=== PATIENT | female | born 1995 | race Caucasian/White ===

== ENCOUNTER 2017-04-17 22:15 | Emergency (ER) | payer OTHER ==
[~2017-04-17] VITALS: Ht 160 cm; Wt 52.2 kg
[2017-04-17] MEDS ORDERED: BC PILL (22:58)
[2017-04-17 23:14] LABS: *BILIRUBIN,URIN NEGATIVE (NEGATIVE); *BLOOD, URINE 2+ (NEGATIVE); *CLARITY,URINE CLEAR (CLEAR); *COLOR,URINE YELLOW (YELLOW); *KETONES,URINE 1+ (NEGATIVE); *PROTEIN,URINE NEGATIVE (NEGATIVE); *UROBILINOGEN,URINE 0.2 E.U./dl (NORMAL); LEUKOCYTE ESTERASE ,URINE TRACE (NEGATIVE); NITRITE, URINE NEGATIVE (NEGATIVE); PH,URINE 6.5 (5.0-8.0); UGLUCOSE NEGATIVE (NEGATIVE)
[2017-04-17 23:34] LABS: BACTERIA,URINE FEW /HPF (NONE SEEN); SQUAMOUS EPITHELIAL CELL,UR MODERATE /HPF (NONE SEEN); WBC,URINE 0-3 /HPF (0-3)
[2017-04-17 23:36] LABS: *URINE HCG, QUAL NEGATIVE (NEGATIVE)
--- NOTE | 2017-04-17 23:47 | NUR ---
Dr. Pina at bedside for eval.
--- NOTE | 2017-04-17 23:59 | NUR ---
Patient discharged to home in stable conditon. Written and verbal after care instructions given. Patient verbalizes understanding of instructions.
[2017-04-18] VITALS: BP 150/98
--- NOTE | 2017-04-18 00:07 | NUR ---
RECHECKED PTS BP 150/98.SPOKE WITH MOM AND PT.THEY ARE AWARE OF ELEVATED BP AND STATED PT HAS HAD THIS SINCE ABOUT THE AGE OF 13.PT AND MOM STATES THEY WILL SEE DR WHEN PT GETS BACK FROM [place].BLOOD PRESSURES WERE WRITTEN ON [facility].THAT INFO WILL BE GIVEN TO PMD.NOTIFIED ER
== END 2017-04-18 00:12 | disposition home or self-care (01) ==
LOC: ER 22:27
DX: S31.41XA Laceration without foreign body of vagina and vulva, initial encounter (principal); I10 Essential (primary) hypertension; X58.XXXA Exposure to other specified factors, initial encounter; Y99.8 Other external cause status; Y93.89 Activity, other specified; Y92.89 Other specified places as the place of occurrence of the external cause
CPT/HCPCS: 81001; 84703; 87086; 87491; 99284; A4663